=== PATIENT | female | born 1985 | race Caucasian/White ===

== ENCOUNTER 2016-12-26 21:29 | Emergency (ER) | payer BC ==
[~2016-12-26] VITALS: Ht 157.5 cm; Wt 56.7 kg
[2016-12-26 22:00] VITALS: BP_SYST 120
[2016-12-26] MEDS ORDERED: DIPH-TET-PERTUS Vaccine 0.5 ML VIAL (ADACEL) I.M. ONE (23:45)
[2016-12-26 23:55] VITALS: BP_SYST 118
== END 2016-12-26 23:55 | disposition home or self-care (01) ==
LOC: SED 21:29
DX: S91.341A Puncture wound with foreign body, right foot, initial encounter (principal); W34.010A Accidental discharge of airgun, initial encounter; Y93.89 Activity, other specified; Y92.89 Other specified places as the place of occurrence of the external cause; Y99.8 Other external cause status
CPT/HCPCS: 81025; 90715; 99284